=== PATIENT | female | born 1945 | race Caucasian/White ===

== ENCOUNTER 2018-06-30 12:33 | Emergency (ER) | payer MEDICARE, MEDICAID ==
[~2018-06-30] VITALS: Ht 162.6 cm; Wt 113.4 kg
[~2018-06-30 12:33] MED LIST: ACETA PO; ASPIRIN E.C.81 MG; CLONIDINE HCL; DOCUSATE SODIU100 M2; GABAPENTIN100 MG PO; INSR; L20 PO; LEVEMIR100 U/ML SC; NATEGLINIDE120 MG; OYSTER SHELL CA; PANTOPRAZOLE40 MG; SIMVASTATIN20 MG PO; TRAMADOL50 MG PO
[2018-06-30 12:39] VITALS: Ht 162.6 cm; Wt 113.4 kg
[2018-06-30] MEDS ORDERED: COUMADIN1 MG PO (12:48)
[2018-06-30] MEDS ORDERED: FUROSEMIDE40 MG PO (12:48)
[2018-06-30] MEDS ORDERED: ATORVASTATIN CA40 M1 PO (12:48)
[2018-06-30] MEDS ORDERED: METFORMIN500 M1 PO (12:49)
[2018-06-30] MEDS ORDERED: ZESTRIL5 MG PO (12:49)
[2018-06-30] MEDS ORDERED: POTASSIUM CHLO10 MEQ PO (12:49)
[2018-06-30] MEDS ORDERED: ALDACTONE25 MG PO (12:49)
[2018-06-30] MEDS ORDERED: LANTUS SOLOS100 U/M1 SQ (12:50)
[2018-06-30] MEDS ORDERED: JANUVIA100 M1 PO (12:50)
[2018-06-30 13:15] LABS: PLATELET COUNT 239 x10^3mcL (130-400)
[2018-06-30 13:27] LABS: ALKALINE PHOSPHATASE 122 U/L (46-116); ALT/SGPT 72 U/L (14-59); AST/SGOT 102 U/L (15-37); BILIRUBIN TOTAL 2.9 mg/dL (0.20-1.00); CALCIUM 9.1 mg/dL (8.5-10.1); CARBON DIOXIDE 21.4 mmol/L (21-32); CHLORIDE SERUM 101 mmol/L (98-107); GLUCOSE SERUM 150 mg/dL (74-106); POTASSIUM SERUM 5.4 mmol/L (3.5-5.1); SODIUM SERUM 134 mmol/L (136-145); TOTAL PROTEIN, SERUM 7.4 g/dL (6.4-8.2)
[2018-06-30 13:29] LABS: ALBUMIN 3.1 g/dL (3.4-5.0); CHOLESTEROL 129 mg/dL (<200); HDL CHOLESTEROL 64 mg/dL (40-60)
[2018-06-30 13:34] LABS: RED CELL DISTRIBUTION WIDTH 14.8 % (11.5-14.5)
[2018-06-30 13:36] LABS: FREE T4 1.4 ng/dL (0.76-1.46); FREE THYROXINE INDEX 2.7 ug/dL (1.4-4.5); T4(THYROXINE) 6.9 ug/dL (4.7-13.3)
[2018-06-30 14:11] LABS: BAND NEUTROPHIL 0 % (0-10); BASOPHIL 0 % (0-2); MONOCYTE 5 % (0-7); SEGMENTED NEUTROPHILS 91 % (37-75)
[2018-06-30 14:13] LABS: T3 TOTAL 0.52 ng/mL
[2018-06-30 14:51] VITALS: BP 109/69
[2018-06-30 15:06] LABS: microscopic required? YES; urine erythrocyte 3+ (NEGATIVE)
[2018-06-30 15:16] LABS: AMPHETAMINE QUAL UR NONE DETECTED (See below)
== END 2018-06-30 15:00 | disposition short-term general hospital (02) ==
LOC: ED 12:33
PROVIDERS: Emergency Medicine
DX: I62.9 Nontraumatic intracranial hemorrhage, unspecified (principal); E87.5 Hyperkalemia; D68.9 Coagulation defect, unspecified; I12.0 Hypertensive chronic kidney disease with stage 5 chronic kidney disease or end stage renal disease; E11.22 Type 2 diabetes mellitus with diabetic chronic kidney disease; N18.5 Chronic kidney disease, stage 5
CPT/HCPCS: 36415; 84439; J7030; Q0092